=== PATIENT | female | born 1975 | race Caucasian/White ===

== ENCOUNTER → 2023-01-25 | Outpatient (CLI) | payer MEDICARE, MEDICAID, SELFPAY | END | disposition home or self-care (01) | LOC: BIMLAB 12:29 | PROVIDERS: PCP Nurse Practitioner Family; Visit Provider Nurse Practitioner Family | DX: R53.82 Chronic fatigue, unspecified (principal) ==

== ENCOUNTER → 2023-02-16 | Outpatient (CLI) | payer MEDICARE, MEDICAID, SELFPAY ==
[2023-02-16 15:40] LABS: Free T3 3.4 pg/mL (2.18-3.98); Thyroid Stim Hormone (TSH) 9.09 uIU/mL (0.358-3.74)
[2023-02-22 01:06] LABS: T3 Reverse 13.1 ng/dL (9.2-24.1); Thyroglobulin Antibody < 1.0 IU/mL (0.0-0.9); Thyroid Peroxidase AB 83 IU/mL (0-34)
== END | disposition home or self-care (01) ==
LOC: BIMLAB 13:56
PROVIDERS: PCP Nurse Practitioner Family; Referring Provider Nurse Practitioner Family; Visit Provider Nurse Practitioner Family
DX: E03.9 Hypothyroidism, unspecified (principal); R53.82 Chronic fatigue, unspecified; G89.29 Other chronic pain
CPT/HCPCS: 36415; 84439; 84443; 84481; 84482; 86376; 86800

== ENCOUNTER → 2024-11-28 | Outpatient (CLI) | payer MEDICARE, MEDICAID, SELFPAY ==
[2024-11-28 17:49] LABS: Hematocrit 43.1 % (37-47); Hemoglobin 14.5 g/dL (12.0-15.0); Immature Granulocytes Count 0.030 X10^3/uL (0.0-0.0); Mean Corp Hgb Conc 33.6 g/dL (32-36); Mean Corpuscular Volume 97.7 fL (81-99); Mean Platelet Vol. 8.9 fl (6.2-12.0); NRBC Flagged by Analyzer 0 % (0-5); Platelet Count 248 K/mm3 (150-450); RBC Distribution Width CV 12.6 % (11.6-14.6); RBC Distribution Width SD 45.1 fl (35.1-43.9); Red Blood Count 4.41 M/mm3 (4.2-5.4); White Blood Count 8.3 K/mm3 (4.4-11.0)
[2024-11-28 18:31] LABS: AST(SGOT) 22 U/L (<=31); Alanine Aminotransfer ALT/SGPT 21 U/L (<=34); Albumin, Serum 4.5 g/dL (3.5-5.0); Alkaline Phosphatase 64 U/L (35-104); Anion Gap 12 (5-15); BUN 18 mg/dL (4-19); BUN/Creat Ratio 23.4 RATIO (10-20); Calcium,Total 9.1 mg/dL (7.6-11.0); Carbon Dioxide 23.1 mmol/L (21.0-32.0); Chloride 103 mmol/L (98-108); Ferritin 38 ng/mL (22-378); Globulin 2.5 g/dL (2.2-4.2); Glucose 106 mg/dL (70-99); Iron 100 ug/dL (50-170); Iron Binding Capacity,Total 375 ug/dL (250-450); Iron Binding Capacity,Unsat 275 ug/dL (228-428); Potassium 4.5 mmol/L (3.3-5.1); Vitamin B12 1767 pg/mL (180-914)
[2024-11-28 19:00] LABS: FOLATES,SERUM (FOLIC ACID) 32.00 ng/mL (4.60-34.80)
== END | disposition home or self-care (01) ==
LOC: LABSPEC 14:07
PROVIDERS: PCP Nurse Practitioner Family
DX: A69.20 Lyme disease, unspecified (principal); D84.9 Immunodeficiency, unspecified; G89.29 Other chronic pain; G47.39 Other sleep apnea; A79.82 Anaplasmosis [A. phagocytophilum]; E03.8 Other specified hypothyroidism; E61.7 Deficiency of multiple nutrient elements; R53.82 Chronic fatigue, unspecified; H05.243 Constant exophthalmos, bilateral; A44.9 Bartonellosis, unspecified; B60.09 Other babesiosis; Z77.120 Contact with and (suspected) exposure to mold (toxic); D64.9 Anemia, unspecified
CPT/HCPCS: 80053; 82607; 82728; 82746; 83540; 83550; 85025